=== PATIENT | male | born 1945 | race Caucasian/White ===

== ENCOUNTER 2020-04-06 02:45 | Inpatient (IN) | payer MEDICARE, BC ==
[~2020-04-06] VITALS: Ht 182.9 cm; Wt 55.9 kg
[~2020-04-06 02:45] MED LIST: ALLOPURINOL100 MG PO; AMIODARONE HCL200 MG PO; AMLODIPINE BESY10 MG PO; ASPIRIN EC81 MG PO; BACTROBAN OINT22 GM EXT; BETAMETHASONE D50 G1 TP; BETAMETHASONE D50 G2 TD; CIPRO500 MG PO; COLACE100 MG PO; CORDARONE 200M200 MG PO; ECOTRIN81 MG PO; ELIQUIS 5 MG TAB5 MG PO; ELIQUIS2.5 MG PO; ELIQUIS5 MG PO; ENULOSE10 GM/15 M PO; FEOSOL325 MG PO; FERROUS SULFAT325 M2 PO; FLAGYL500 MG PO; FLOMAX 0.4 MG0.4 MG PO; FLOMAX0.4 MG PO; IMODIUM CAP 2 MG2 MG PO; K-DUR TAB 20 M20 MEQ PO; KEFLEX CAP 500500 MG PO; KENALOG CREAM 080 GM EXT; KLOR-CON M2020 MEQ PO; LEVOFLOXAC750 MG/150 IV; LIPITOR TAB 2020 MG PO; LIPITOR10 MG PO; MAG-AL PLUS XS30 ML PO; MEGACE 400400 MG/10 PO; MELATONIN3 MG PO; MERREM I.V. 50500 MG IV; MYCAMINE100 MG IV; NITROSTAT 0.40.4 MG SL; NORCO 5-325 TA1 EACH PO; OMNICEF 300 MG300 MG PO; PERCOCET 5-3251 EACH PO; PHENERGAN 12.12.5 M1 PO; PHENERGAN 25 MG25 M1 PO; PLAVIX 75 MG TA75 MG PO; PRAVACHOL20 MG PO; PRAVASTATIN SOD20 MG PO; PRAVASTATIN SOD40 MG PO; PROTONIX40 MG PEG; PROTONIX40 MG PO; ROBITUSSIN DM UD5 ML PO; SENNA PLUS TAB1 EACH PEG; SENNA-PLUS TAB1 EACH PO; SENOKOT-S TABL1 EACH PO; SEROQUEL50 MG PO; SINEMET 25/100 T1 EA PO; STOOL SOFTENER100 MG PO; TENORMIN 25 MG25 MG PO; TESSALON PERLE100 MG PO; THERAGRAN M TAB1 EA PO; TOPROL XL50 MG PO; TYLENOL325 MG PO; VANCOMYCIN HC1.25 GM IV; VANCOMYCIN1.25 GM/12 IV; ZERBAXA 1-0.51.5 GM IV; ZOFRAN 4 MG TAB4 MG PEG; ZOFRAN4 MG PO; ZOSYN 3.3753.375 GM INJ; ZYVOX600 MG PO
[2020-04-06 03:10] LABS: HEMOGLOBIN 9.4 gm/dl (14.0-17.5); RED BLOOD COUNT 3.59 M/UL (4.20-5.50); WHITE BLOOD COUNT 21.8 K/UL (4.5-11.0)
[2020-04-06 03:33] LABS: BUN/CREATININE RATIO 32 (0-10)
[2020-04-06 14:11] LABS: ACINETOBACTER BAUMANNII Not Detected (Negative); CANDIDA ALBICANS Not Detected (Negative); CANDIDA KRUSEI Not Detected (Negative); CANDIDA TROPICALIS Not Detected (Negative); ENTEROCOCCUS Not Detected (Negative); HAEMOPHILUS INFLUENZAE Not Detected (Negative); KLEBSIELLA OXYTOCA Not Detected (Negative); KLEBSIELLA PNEUMONIAE Not Detected (Negative); KPC-CARBAPENEM-RESISTANCE GENE Not Detected (Negative); PROTEUS Not Detected (Negative); PSEUDOMONAS AERUGINOSA Not Detected (Negative); SERRATIA MARCESANS Not Detected (Negative); STAPHYLOCOCCUS Not Detected (Negative); STAPHYLOCOCCUS AUREUS Not Detected (Negative); STREP AGALACTIAE (GROUP B) Not Detected (Negative); STREP PYOGENES (GROUP A) Not Detected (Negative); STREPTOCOCCUS Not Detected (Negative); mecA (METHICILLIN RESIST GENE Not Detected (Negative); vanA/B (VANCOMYCIN RESIST GENE Not Detected (Negative)
[2020-04-06 16:11] LABS: ESCHERICHIA COLI DETECTED (Negative)
[2020-04-07 03:29] LABS: HEMOGLOBIN 8.9 gm/dl (14.0-17.5); RED BLOOD COUNT 3.43 M/UL (4.20-5.50); WHITE BLOOD COUNT 21.6 K/UL (4.5-11.0)
[2020-04-08 05:21] LABS: HEMOGLOBIN 7.9 gm/dl (14.0-17.5); RED BLOOD COUNT 3.14 M/UL (4.20-5.50); WHITE BLOOD COUNT 20.5 K/UL (4.5-11.0)
[2020-04-08 05:43] LABS: BUN/CREATININE RATIO 31 (0-10)
[2020-04-09 09:57] LABS: BUN/CREATININE RATIO 31 (0-10)
[2020-04-10 03:51] LABS: BUN/CREATININE RATIO 38 (0-10)
[2020-04-10 04:13] LABS: HEMOGLOBIN 8.1 gm/dl (14.0-17.5); RED BLOOD COUNT 3.14 M/UL (4.20-5.50); WHITE BLOOD COUNT 23.2 K/UL (4.5-11.0)
[2020-04-11 03:16] LABS: HEMOGLOBIN 7.9 gm/dl (14.0-17.5); RED BLOOD COUNT 3.08 M/UL (4.20-5.50); WHITE BLOOD COUNT 18.5 K/UL (4.5-11.0)
[2020-04-11 03:58] LABS: BUN/CREATININE RATIO 40 (0-10)
[2020-04-12 03:48] LABS: HEMOGLOBIN 7.2 gm/dl (14.0-17.5)
[2020-04-12 03:56] LABS: RED BLOOD COUNT 2.75 M/UL (4.20-5.50); WHITE BLOOD COUNT 23.8 K/UL (4.5-11.0)
[2020-04-12 04:06] LABS: BUN/CREATININE RATIO 40 (0-10)
[2020-04-13 04:02] LABS: HEMOGLOBIN 7.6 gm/dl (14.0-17.5); RED BLOOD COUNT 2.88 M/UL (4.20-5.50); WHITE BLOOD COUNT 26.7 K/UL (4.5-11.0)
[2020-04-13 04:31] LABS: BUN/CREATININE RATIO 40 (0-10)
[2020-04-14 03:25] LABS: HEMOGLOBIN 7.2 gm/dl (14.0-17.5); RED BLOOD COUNT 2.72 M/UL (4.20-5.50); WHITE BLOOD COUNT 27.2 K/UL (4.5-11.0)
[2020-04-14 03:49] LABS: BUN/CREATININE RATIO 38 (0-10)
[2020-04-15 03:16] LABS: RED BLOOD COUNT 2.69 M/UL (4.20-5.50); WHITE BLOOD COUNT 24.2 K/UL (4.5-11.0)
[2020-04-15 03:45] LABS: BUN/CREATININE RATIO 34 (0-10)
[2020-04-16 02:16] LABS: HEMOGLOBIN 8.8 gm/dl (14.0-17.5); WHITE BLOOD COUNT 23.2 K/UL (4.5-11.0)
[2020-04-16 02:22] LABS: RED BLOOD COUNT 3.21 M/UL (4.20-5.50)
[2020-04-16 02:34] LABS: BUN/CREATININE RATIO 44 (0-10)
[2020-04-17 03:24] LABS: HEMOGLOBIN 8.2 gm/dl (14.0-17.5); RED BLOOD COUNT 3.15 M/UL (4.20-5.50); WHITE BLOOD COUNT 22.3 K/UL (4.5-11.0)
[2020-04-17 03:55] LABS: BUN/CREATININE RATIO 45 (0-10)
[2020-04-17] MEDS ORDERED: ZYVOX IV 6600 MG/300 IV (11:01)
[2020-04-17] MEDS ORDERED: FERROUS SULFAT325 M2 PEG (11:01)
== END 2020-04-17 16:36 | DRG 871 ==
LOC: ER1 02:45 → CCU 04:56 → CDU 04:56 → PROG CARE 04:56 → CCU 06:06 → PROG CARE 04-09 18:56
PROVIDERS: Emergency Medicine; Internal Medicine; Internal Medicine Pulmonary Disease; ADMIT Internal Medicine
PROC: 0DH67UZ Insertion of Feeding Device into Stomach, Via Natural or Artificial Opening (ICD-10-PCS; 2020-04-06)
PROC: 0DH64UZ Insertion of Feeding Device into Stomach, Percutaneous Endoscopic Approach (ICD-10-PCS; 2020-04-10)
PROC: 3E0G76Z Introduction of Nutritional Substance into Upper GI, Via Natural or Artificial Opening (ICD-10-PCS; 2020-04-10)
PROC: 30233N1 Transfusion of Nonautologous Red Blood Cells into Peripheral Vein, Percutaneous Approach (ICD-10-PCS; principal; 2020-04-15)
DX: A41.51 Sepsis due to Escherichia coli [E. coli] (principal); N17.0 Acute kidney failure with tubular necrosis; L89.113 Pressure ulcer of right upper back, stage 3; J18.9 Pneumonia, unspecified organism; R65.21 Severe sepsis with septic shock; G93.41 Metabolic encephalopathy; E43 Unspecified severe protein-calorie malnutrition; J96.01 Acute respiratory failure with hypoxia; N30.00 Acute cystitis without hematuria; Z16.12 Extended spectrum beta lactamase (ESBL) resistance; E87.1 Hypo-osmolality and hyponatremia; M86.652 Other chronic osteomyelitis, left thigh; R64 Cachexia; E87.0 Hyperosmolality and hypernatremia; Z20.822 Contact with and (suspected) exposure to COVID-19; B96.20 Unspecified Escherichia coli [E. coli] as the cause of diseases classified elsewhere; R13.10 Dysphagia, unspecified; E87.6 Hypokalemia; I48.0 Paroxysmal atrial fibrillation; Z79.899 Other long term (current) drug therapy; Z79.01 Long term (current) use of anticoagulants; Z86.711 Personal history of pulmonary embolism; N40.0 Benign prostatic hyperplasia without lower urinary tract symptoms; M19.90 Unspecified osteoarthritis, unspecified site; Z87.891 Personal history of nicotine dependence; Z90.5 Acquired absence of kidney; D72.829 Elevated white blood cell count, unspecified; L89.320 Pressure ulcer of left buttock, unstageable; L89.310 Pressure ulcer of right buttock, unstageable; L89.610 Pressure ulcer of right heel, unstageable; I12.9 Hypertensive chronic kidney disease with stage 1 through stage 4 chronic kidney disease, or unspecified chronic kidney disease; N18.9 Chronic kidney disease, unspecified; D53.9 Nutritional anemia, unspecified; R62.7 Adult failure to thrive; D50.9 Iron deficiency anemia, unspecified
CPT/HCPCS: 36415; 36430; 36600; 71045; 72170; 74018; 80048; 80053; 80202; 81001; 82533; 82550; 82553; 82803; 83540; 83550; 83605; 83690; 83735; 83874; 83880; 84100; 84132; 84439; 84443; 84484; 85025; 85610; 85730; 86140; 86850; 86900; 86901; 86920; 87040; 87077; 87081; 87086; 87150; 87186; 93005; 94660; 94760; 96365; 96366; 96368; 97163; 99285; A6212; J0695; J1335; J1720; J2001; J2020; J2186; J2543; J2704; J3370; J7030; J7040; J7070; J7120; P9016; P9047; U0002

== ENCOUNTER 2021-02-07 06:37 | Inpatient (IN) | payer MEDICARE, BC ==
[~2021-02-07] VITALS: Ht 182.9 cm; Wt 66.0 kg
[~2021-02-07 06:37] MED LIST changes: +FERROUS SULFAT325 M2 PEG; +ZYVOX IV 6600 MG/300 IV
[2021-02-07 08:06] LABS: RED BLOOD COUNT 3.82 M/UL (4.20-5.50); WHITE BLOOD COUNT 21.4 K/UL (4.5-11.0)
[2021-02-07 09:17] LABS: BUN/CREATININE RATIO 20 (0-10)
[2021-02-08 08:44] LABS: RED BLOOD COUNT 4.76 M/UL (4.20-5.50); WHITE BLOOD COUNT 19.5 K/UL (4.5-11.0)
[2021-02-08 08:45] LABS: HEMOGLOBIN 13.5 gm/dl (14.0-17.5)
[2021-02-08 10:04] LABS: BUN/CREATININE RATIO 19 (0-10)
[2021-02-09 05:46] LABS: HEMOGLOBIN 12.5 gm/dl (14.0-17.5); RED BLOOD COUNT 4.34 M/UL (4.20-5.50)
[2021-02-09 06:28] LABS: BUN/CREATININE RATIO 13 (0-10)
[2021-02-10 04:55] LABS: HEMOGLOBIN 10.8 gm/dl (14.0-17.5); WHITE BLOOD COUNT 11.5 K/UL (4.5-11.0)
[2021-02-10 04:59] LABS: RED BLOOD COUNT 3.87 M/UL (4.20-5.50)
[2021-02-10 05:13] LABS: BUN/CREATININE RATIO 14 (0-10)
[2021-02-11 05:34] LABS: HEMOGLOBIN 10.9 gm/dl (14.0-17.5); RED BLOOD COUNT 3.82 M/UL (4.20-5.50); WHITE BLOOD COUNT 13.2 K/UL (4.5-11.0)
[2021-02-11 06:01] LABS: BUN/CREATININE RATIO 16 (0-10)
[2021-02-12 06:12] LABS: RED BLOOD COUNT 3.81 M/UL (4.20-5.50)
[2021-02-12 06:14] LABS: WHITE BLOOD COUNT 18.4 K/UL (4.5-11.0)
[2021-02-12 06:24] LABS: BUN/CREATININE RATIO 18 (0-10)
[2021-02-13 04:26] LABS: HEMOGLOBIN 11.1 gm/dl (14.0-17.5); RED BLOOD COUNT 3.85 M/UL (4.20-5.50); WHITE BLOOD COUNT 13.8 K/UL (4.5-11.0)
[2021-02-13 05:07] LABS: BUN/CREATININE RATIO 25 (0-10)
[2021-02-14 03:55] LABS: HEMOGLOBIN 9.3 gm/dl (14.0-17.5); WHITE BLOOD COUNT 12.2 K/UL (4.5-11.0)
[2021-02-14 04:12] LABS: RED BLOOD COUNT 3.38 M/UL (4.20-5.50)
[2021-02-14 04:16] LABS: BUN/CREATININE RATIO 30 (0-10)
[2021-02-15 03:23] LABS: HEMOGLOBIN 9.7 gm/dl (14.0-17.5); RED BLOOD COUNT 3.58 M/UL (4.20-5.50); WHITE BLOOD COUNT 10.3 K/UL (4.5-11.0)
[2021-02-15 03:47] LABS: BUN/CREATININE RATIO 30 (0-10)
[2021-02-16 03:04] LABS: HEMOGLOBIN 8.7 gm/dl (14.0-17.5); WHITE BLOOD COUNT 8.3 K/UL (4.5-11.0)
[2021-02-16 03:09] LABS: RED BLOOD COUNT 3.08 M/UL (4.20-5.50)
[2021-02-16 03:28] LABS: BUN/CREATININE RATIO 31 (0-10)
[2021-02-16] MEDS ORDERED: IPRAT-ALBUT 0.5-3 ML INH (18:21)
[2021-02-16] MEDS ORDERED: MIDODRINE HCL2.5 MG PO (18:21)
[2021-02-16] MEDS ORDERED: BACTRIM DS TAB1 EACH PO (18:21)
[2021-02-16] MEDS ORDERED: SIDESTREAM NEB1 EACH MC (18:21)
[2021-02-17 07:48] LABS: BUN/CREATININE RATIO 28 (0-10)
[2021-02-17] MEDS ORDERED: ZYVOX600 MG PO ×2 (09:50→09:51)
[2021-02-17] MEDS ORDERED: GUAIFENESIN400 MG PEG (11:33)
[2021-02-17] MEDS ORDERED: ROBITUSSIN100 MG/5 M PO (11:39)
== END 2021-02-17 14:00 | DRG 871 ==
LOC: PROG CARE 06:37 → CCU 06:37 → PROG CARE 02-12 14:43
PROVIDERS: Internal Medicine; Physician Assistant Medical; ADMIT Internal Medicine
PROC: 5A1945Z Respiratory Ventilation, 24-96 Consecutive Hours (ICD-10-PCS; 2021-02-07)
PROC: B24BZZZ Ultrasonography of Heart with Aorta (ICD-10-PCS; principal; 2021-02-08)
DX: A41.02 Sepsis due to Methicillin resistant Staphylococcus aureus (principal); J15.212 Pneumonia due to Methicillin resistant Staphylococcus aureus; R65.21 Severe sepsis with septic shock; J96.02 Acute respiratory failure with hypercapnia; E43 Unspecified severe protein-calorie malnutrition; I21.A1 Myocardial infarction type 2; J44.0 Chronic obstructive pulmonary disease with (acute) lower respiratory infection; J96.11 Chronic respiratory failure with hypoxia; N30.00 Acute cystitis without hematuria; N17.9 Acute kidney failure, unspecified; E87.2 Acidosis; I42.9 Cardiomyopathy, unspecified; Z68.1 Body mass index [BMI] 19.9 or less, adult; Z20.822 Contact with and (suspected) exposure to COVID-19; Z66 Do not resuscitate; R13.10 Dysphagia, unspecified; E83.42 Hypomagnesemia; E87.6 Hypokalemia; N40.0 Benign prostatic hyperplasia without lower urinary tract symptoms; I07.1 Rheumatic tricuspid insufficiency; E78.5 Hyperlipidemia, unspecified; D64.9 Anemia, unspecified; R53.81 Other malaise; I95.9 Hypotension, unspecified; I48.0 Paroxysmal atrial fibrillation; L89.150 Pressure ulcer of sacral region, unstageable; Z86.711 Personal history of pulmonary embolism; Z79.01 Long term (current) use of anticoagulants; Z87.891 Personal history of nicotine dependence; Z82.49 Family history of ischemic heart disease and other diseases of the circulatory system
CPT/HCPCS: ECHO; 36415; 36600; 71045; 76705; 80048; 80053; 80202; 81001; 82150; 82533; 82550; 82553; 82803; 82962; 83605; 83690; 83735; 84100; 84132; 84439; 84443; 84484; 85018; 85025; 85027; 86140; 87040; 87070; 87077; 87086; 87186; 87205; 93306; 94002; 94003; 94640; 94660; 94664; 94668; 94760; 97110-GP-CQ; 97162; 97530-GP-CQ; A6212; C9113; J0696; J0713; J1940; J2020; J2185; J2370; J2704; J2920; J3370; J3475; J7030; J7050; J7070; P9047; Q9967